=== PATIENT | female | born 1940 | race Caucasian/White ===

== ENCOUNTER 2019-01-31 13:10 | Emergency (ER) | payer MEDICARE ==
[2019-01-31 13:53] LABS: Bilirubin Small (Negative); Blood, Urine Trace (Negative); Clarity Hazy (Clear); Glucose, Urine (Dipstick) Negative (Negative); Leukocyte Small (Negative); Nitrite Negative (Negative); Protein, Urine (Dipstick) 30 mg/dL (Neg-Trace); Specific Gravity, Urine 1.028 (1.002-1.036); Urobilinogen 0.2 mg/dL (0.2-1.0)
[2019-01-31 13:55] LABS: Bacteria/HPF 4+ HPF (None Seen); RBC/HPF 0-3 HPF (0-3)
--- NOTE | 2019-01-31 15:10 | RAD ---
RADIOGRAPH CHEST AND LEFT RIBS 4 VIEWS: DATE: 01/31/2019. HISTORY: A 78-year-old female with acute left mid rib pain. FINDINGS: No displaced acute rib fracture is identified. No pulmonary edema, consolidation, or pneumothorax. No significant effacement of lateral costophrenic angles. No cardiomegaly. Short linear density at mid lung zone consistent with subsegmental atelectasis or scar. IMPRESSION: 1. No active disease. 2. No rib fracture identified. POS: [facility]
[2019-01-31] MEDS ORDERED: Ketorolac Tromethamine 30 MG/ML VIAL ONE (15:14)
== END 2019-01-31 15:32 | disposition home or self-care (01) ==
LOC: SCSER 13:10
DX: N12 Tubulo-interstitial nephritis, not specified as acute or chronic (principal); R10.9 Unspecified abdominal pain; I10 Essential (primary) hypertension
CPT/HCPCS: 81003; 81015; 87077; 87086; 87186; 96372; J1885

== ENCOUNTER 2022-02-02 19:00 | Outpatient (CLI) | payer MEDICARE | END 2022-02-02 19:01 | disposition home or self-care (01) | LOC: SLEEPLAB 19:00 | PROVIDERS: ATTEND Otolaryngology Plastic Surgery within the Head & Neck | DX: G47.33 Obstructive sleep apnea (adult) (pediatric) (principal); R06.83 Snoring; F32.9 Major depressive disorder, single episode, unspecified; R35.1 Nocturia; G47.10 Hypersomnia, unspecified; E66.9 Obesity, unspecified; Z68.41 Body mass index [BMI] 40.0-44.9, adult | CPT/HCPCS: 95810 ==